=== PATIENT | female | born 1970 | race African-American/Black ===

== ENCOUNTER 2023-05-27 08:11 | Observation (INO) | payer OTHER, SELFPAY ==
[2023-05-27] VITALS (12 sets, daily range): BP systolic 132–160; BP diastolic 73–88; PULSE 50–85; RESP 12–19; TEMP 36.1–36.4; O2SAT 98–100; BMI 33.5
--- NOTE | ~2023-05-27 | XR_ITS ---
EXAMINATION: XR lumbar spine 2-3V DATE: 05/30/2023 13:36 INDICATION: Low back pain TECHNIQUE: Anteroposterior and lateral views of the lumbar spine, and cone-down lateral view of the l umbosacral junction were obtained. COMPARISON: None. FINDINGS: 7 degrees lumbar dextrocurvature. 6 mm anterolisthesis L4 on L5. 3 mm retrolisthesis L5 on S1. Verteb ral body heights are normal. Mild disc height loss at T12-L1 and L4-L5 and moderate disc height loss at L5-S1. 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 Phleboliths in the pel vis. IMPRESSION: 1. Mild lumbar levocurvature with moderate lower lumbar predominant spondylosis. Reviewed, dictated and finalized at location A. L REFINER IMPRESSION: 1. Mild lumbar levocurvature with moderate lower lumbar predominant spondylosis .
--- NOTE | ~2023-05-27 | MR_ITS ---
MRI of the brain Clinical History: Vertigo Technique: Axial and sagittal T1-weighted images were acquired. These were followed by axial T2-weigh david, diffusion weighted, gradient, and FLAIR images. Following intravenous administration of 20 cc Mu ltiHance gadolinium, T1-weighted fat-sat imaging was performed in the axial and coronal planes. Findings: There is no abnormal signal in the brain parenchyma. No acute infarct, intracranial hemorrh age or mass lesion. Ventricles and subarachnoid spaces are unremarkable. Orbits are unremarkable. Paranasal sinuses and m astoid air cells are clear. Major intracranial flow voids are intact. Sagittal midline structures are intact. No abnormal postcontrast enhancement identified. IMPRESSION: Unremarkable exam. Reviewed, dictated and finalized at location M. T OPERATOR IMPRESSION: Unremarkable exam.
--- NOTE | ~2023-05-27 | CT_ITS ---
EXAMINATION: CT brain wo con DATE: 05/27/2023 10:07 INDICATION: Vertigo. TECHNIQUE: Computed tomography (CT) of the head was performed without intravenous contrast. The mA wa s adjusted according to patient size. Iterative reconstruction technique was employed. The dose-lengt h product was 605.33 mGy-cm. COMPARISON: None FINDINGS: There is no intracranial hemorrhage, acute infarction, or abnormal intracranial mass lesion . The ventricles are normal in size. The orbits are normal. The paranasal sinuses are clear. The mast oid air cells are normal. IMPRESSION: 1. Normal brain. Reviewed, dictated and finalized at location A. OCK MAKER IMPRESSION: 1. Normal brain.
--- NOTE | ~2023-05-27 | CT_ITS ---
EXAMINATION: CTA brain carotid DATE: 05/27/2023 11:47 INDICATION: Vertigo. TECHNIQUE: Computed tomographic angiography (CTA) of the head was performed with 100 mL Omnipaque-350 intravenous contrast. CTA of the neck was performed with intravenous contrast. Automated exposure co ntrol and iterative reconstruction technique were employed. The dose-length product was 1049.96 mGy-c m. Maximum intensity projection and volume rendered 3D-reconstructions were created by the Xenapto st on a separate workstation. COMPARISON: Head CT 05/27/2023 FINDINGS: HEAD CTA: There is no intracranial hemorrhage, acute infarction, or abnormal intracranial mass lesion . The ventricles are normal in size. The orbits are normal. The paranasal sinuses are clear. The mast oid air cells are normal. The vertebral arteries are codominant. There is no significant stenosis of basilar artery or the posterior cerebral arteries. There is no significant stenosis of the intracrani al internal carotid arteries or anterior or middle cerebral arteries. Anterior commuting artery is no rmal. The posterior communicating arteries are normal. There is no aneurysm. NECK CTA: There are no pathologically enlarged lymph nodes. There is no significant stenosis of the v ertebral arteries. There is plaque in the proximal internal carotid arteries. There is 0% stenosis of the proximal right internal carotid artery relative to normal distal artery lumen diameter (NASCET c riteria). There is 0% stenosis of the proximal left internal carotid artery relative to normal distal artery lumen diameter. There is severe cervical spondylosis. IMPRESSION: 1. Normal brain. No aneurysm or significant intracranial arterial stenosis. 2. 0% stenosis of the proximal internal carotid arteries relative to normal distal artery lumen diame ters (NASCET criteria). Reviewed, dictated and finalized at location A. GOW DEALER IMPRESSION: 1. Normal brain. No aneurysm or significant intracranial arterial stenosis. 2. 0% stenosis of the proximal internal carotid arteries relative to normal dis jaqui artery lumen diameters (NASCET criteria).
--- NOTE | 2023-05-27 08:20 | ED.DIZZY ---
HPI - Dizziness General Chief Complaint: Dizziness Stated Complaint: n/v Time Seen by Provider: 05/27/23 08:13 History of Present Illness HPI Narrative: 53-year-old female presenting to the emergency department for evaluation dizziness with associated nausea and vomiting. Patient states the symptoms started today. 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 Patient arrived to the emergency department by EMS. Patient denies a recent falls or injuries. Patient denies any coughs colds or fevers and patient denies any associated numbness or weakness. Related Data Home Medications Medication Instructions Recorded Confirmed amlodipine 5 mg tablet 5 mg PO DAILY 05/27/23 05/27/23 metoprolol tartrate 50 mg tablet 50 mg PO DAILY 05/27/23 05/27/23 potassium chloride 10 mEq 10 meq PO DAILY 05/27/23 05/27/23 tablet,extended release triamterene 37.5 1 tablet PO DAILY 05/27/23 05/27/23 mg-hydrochlorothiazide 25 mg tablet valacyclovir 1 gram tablet 1,000 mg PO DAILY 05/27/23 05/27/23 Allergies Allergy/AdvReac Type Severity Reaction Status Date / Time No Known Allergies Allergy Verified 05/27/23 08:18 Review of Systems Review of Systems: All systems reviewed & are unremarkable except as noted in HPI and below PMFSH Past Medical History Medical History (Updated 05/27/23 @ 18:22 by Lai Zhang MD) Hypertension Social History Social History Smoking status: Never smoker Do You Feel Safe in your Home?: Yes Lack of Transportation: No Lack of Food: Never True Current Housing: I Have Housing Concerned About Future Housing: No Difficulty Paying Gas/Electric Bills: No Difficulty Paying for Meds: No Currently Unemployed: No Education: High School Diploma/GED Difficulty w/ Childcare or Family Care: No Spiritual care concerns: No Exam Narrative: APPEARANCE: Persistent nausea HEAD: normocephalic, atraumatic. EYES: PERRLA/EOMI, conjunctivae clear. NOSE: Normal no drainage EARS:TMS clear with good light reflex. THROAT: Pharynx clear, no exudate. NECK: Supple. No adenopathy, no masses. RESPIRATORY: Airway patent, respirations nonlabored. Clear to auscultation bilaterally, no rales, rhonchi, wheezing. CARDIOVASCULAR: Regular rate and rhythm without murmurs rubs or gallops. ABDOMINAL: Soft, nontender, nondistended, normal bowel sounds MUSCULOSKELETAL: Moves all extremities. Strength/ROM intact, No edema, No calf tenderness. NEURO: Alert. Cranial nerves II through XII intact. Grossly intact SKIN: Warm, dry. Normal Color Course Course Emergency Course: 53-year-old female present to the emergency department for evaluation of vertigo. Patient was having nausea and vomiting upon arrival to the emergency department. Patient was treated with Reglan Zofran and meclizine patient has had a resolution as her nausea and vomiting. Patient states she still feels dizzy. Head CT was negative for acute intracranial abnormality. Patient was negative for influenza RSV and COVID. No significant abnormalities on the patient's CMP other than a potassium of 3.0 this is replaced orally. Patient had persistent vertigo and was unable to ambulate at her baseline. CT and CTA showed no acute intracranial abnormality. Neurology consult was placed. Case was discussed the hospitalist and patient was accepted for admission. Patient family were updated the results of the workup plan for admission for MRI to evaluate for possible CVA. All questions concerns were addressed. Vital Signs Vital signs: Vital Signs Temperature 97.0 F L 05/27/23 08:11 Pulse Rate 63 05/27/23 08:11 Respiratory Rate 17 05/27/23 08:11 Blood Pressure 132/73 05/27/23 08:11 Pulse Oximetry 98 05/27/23 08:11 Oxygen Delivery Room Air 05/27/23 08:11 Temperature 97.0 F L 05/27/23 08:11 Pulse Rate 68 05/27/23 15:21 Respiratory Rate 16 05/27/23 15:21
[2023-05-27 08:28] LABS: Basophils Absolute Auto 0.1 K/mm3 (0.0-0.1); Basophils Percent Auto 0.5 % (0.2-1.2); Eosinophils Percent Auto 0.4 % (0-4.4); Hematocrit 41.1 % (37.0-47.0); Hemoglobin 13.1 g/dL (12.0-15.0); Immature Granulocyte Absolute 0.05 K/mm3 (0.00-0.031); Immature Granulocyte Percent A 0.5 % (0-0.5); Lymphocytes Absolute Auto 3.34 K/mm3 (0.9-3.2); Lymphocytes Percent Auto 33.3 % (18.3-44.2); Mean Corpuscular HGB Conc 31.9 g/dl (32-36); Mean Corpuscular Hemoglobin 25.9 pg (26-34); Mean Corpuscular Volume 81.4 fl (80-100); Mean Platelet Volume 10.6 fl (7.4-10.4); Monocytes Absolute Auto 0.5 K/mm3 (0.1-0.6); Monocytes Percent Auto 5.4 % (2.6-8.5); Neutrophils Percent Auto 59.9 % (45.5-73.1); Platelet Count Result 272 k/mm3 (150-375); Red Blood Count 5.05 M/mm3 (4.2-5.4); Red Cell Distribution Width 13.5 % (11.5-14.5)
[2023-05-27] MEDS: diazePAM INJ (*CRX) 10 MG/2 ML SYRINGE 2 MG IV PUSH (08:30)
[2023-05-27] MEDS: SODIUM CHLORIDE 0.9% IV 1,000 ML 999 ML IV CONT (08:30)
[2023-05-27] MEDS: METOCLOPRAMIDE HCL INJ 10 MG/2 ML VIAL IV PUSH ×2 (08:30→12:15)
[2023-05-27] MEDS: MECLIZINE HCL 25 MG TABLET PO (08:30)
[2023-05-27 08:42] LABS: Alanine Aminotransferase 34 U/L (6-35); Albumin Level 4.5 g/dL (3.5-5.1); Alkaline Phosphatase 101 U/L (38-126); Anion Gap 9 mmol/L (8-16); Aspartate Amino Transferase 33 U/L (14-36); Bilirubin,Total 0.5 mg/dL (0.2-1.3); Blood Urea Nitrogen 18 mg/dL (7-17); Calcium 9.4 mg/dL (8.4-10.2); Carbon Dioxide 25 mmol/L (22-30); Chloride 104 mmol/L (98-107); Estimated CRCL calculation 82 ml/min; Estimated Glomerular Filt Rate > 60; Glucose 160 mg/dL (65-110); Sodium 138 mmol/L (137-145)
[2023-05-27] MEDS: POTASSIUM CHLORIDE 20 MEQ ER TABLET 40 MEQ PO (09:40)
[2023-05-27 10:05] LABS: Magnesium 1.9 mg/dL (1.6-2.3)
[2023-05-27 10:33] LABS: Influenza A QL RT-PCR Negative (Negative); Influenza B QL RT-PCR Negative (Negative); RSV RNA, RT-PCR Negative (Negative); SARS-CoV-2 RNA PCR Negative (Negative)
[2023-05-27 13:20] LABS: Toxigenic C. Diff NEGATIVE (NEGATIVE)
--- NOTE | 2023-05-27 14:49 | PM.IMHP ---
H&P: HPI History of Present Illness Date/Time: 05/27/23 14:30 Chief Complaint: Dizziness, nausea, and vomiting. Narrative: This is a very pleasant 53-year-old female with hypertension who presented to the emergency department via EMS for evaluation of dizziness, nausea, and vomiting. The patient provides the following history. She woke up this morning in her usual state of health and went to work at 05:00. 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 She reports feeling as though the room is spinning and she cannot even change her gaze or move her head without worsening symptoms. She also reports several episodes of emesis and a few loose stools. She denies visual changes, facial droop, difficulty speaking and swallowing, focal weakness, and paresthesias. She also denies fever, chills, sweats, tinnitus, cold and flu symptoms, chest pain, pleuritic pain, palpitations, and sensations of racing heart. She has not had any recent falls or head trauma. She has never had similar symptoms. In the ED: She was afebrile on arrival with blood pressures in the 140s over 80s. Labs were significant for potassium of 3.0, BUN 18, creatinine 0.80, glucose 160. She tested negative for influenza, RSV, and COVID. Brain CT showed a normal brain. CTA of the head and neck showed no aneurysm or significant intracranial arterial stenosis and 0% stenosis of the proximal bilateral internal carotid arteries. Metoclopramide, meclizine, and diazepam have not provided her with much relief. She is being admitted in this setting for further treatment and evaluation. Review of Systems Review of Systems: Twelve systems were reviewed and are negative except for as per HPI. [facility] Past Medical History Medical History Hypertension Surgical History Surgical History (Updated 05/27/23 @ 21:11 by Kanwal Burk PA-C) History of lumbar surgery Family History Family History (Updated 05/27/23 @ 21:11 by Kanwal Burk PA-C) Other Family history non-contributory Social History Social History (Updated 05/27/23 @ 21:12 by Kanwal Burk PA-C) Social History: Code status: Full code. Smoking status: Never smoker Do You Feel Safe in your Home?: Yes Lack of Transportation: No Lack of Food: Never True Current Housing: I Have Housing Concerned About Future Housing: No Difficulty Paying Gas/Electric Bills: No Difficulty Paying for Meds: No Currently Unemployed: No Education: High School Diploma/GED Difficulty w/ Childcare or Family Care: No Spiritual care concerns: No Meds Home Medications and Allergies Home Medications Medication Instructions Recorded Confirmed Type amlodipine 5 mg tablet 5 mg PO DAILY 05/27/23 05/27/23 History metoprolol tartrate 50 mg tablet 50 mg PO DAILY 05/27/23 05/27/23 History potassium chloride 10 mEq 10 meq PO DAILY 05/27/23 05/27/23 History tablet,extended release triamterene 37.5 1 tablet PO DAILY 05/27/23 05/27/23 History mg-hydrochlorothiazide 25 mg tablet valacyclovir 1 gram tablet 1,000 mg PO DAILY 05/27/23 05/27/23 History Allergies Allergy/AdvReac Type Severity Reaction Status Date / Time No Known Allergies Allergy Verified 05/27/23 08:18 Vital Signs Vital Signs - 24 hr 05/27/23 08:11 05/27/23 09:02 05/27/23 10:53 Temperature 97.0 F L Pulse Rate 63 68 69 Respiratory Rate 17 12 18 Blood Pressure 132/73 142/85 H 146/85 H Pulse Oximetry 98 100 100 Oxygen Delivery Room Air 05/27/23 09:52 05/27/23 10:09 05/27/23 11:01 Temperature Pulse Rate 71 65 68 Respiratory Rate 17 15 14 Blood Pressure 143/88 H 146/85 H 147/88 H Pulse Oximetry 100 98 100 Oxygen Delivery 05/27/23 13:01 05/27/23 14:30 Temperature Pulse Rate 78 71 Respiratory Rate 19 15 Blood Pressure 145/86 H 146/
--- NOTE | 2023-05-27 15:21 | PCPTNOTE ---
attempted to see at 1515, but not on the floor yet according to Dinorah ARCE.
--- NOTE | 2023-05-27 15:45 | ADMGEN ---
This patient, Silvia Taylor, was admitted to Medical Room 251-01. Patient/family oriented to hospital policies and general routines including ID bracelet, bed and alarms, visiting hours, pain management, procedures, bathroom and other care routines, personal items, smoking policy, room service/diet, and visiting hours. Information on how to activate the Rapid Response Team has been discussed. Patient/Family are encouraged to report perceived risks to care and to ask questions if they do not understand what they are told or what they should do.
[2023-05-27] MEDS: ONDANSETRON INJ 4 MG/2 ML VIAL IV PUSH ×2 (15:54→21:30)
[2023-05-27] MEDS: MECLIZINE HCL 12.5 MG TABLET PO (15:54)
[2023-05-27] MEDS: SODIUM CHLORIDE 0.9% IV 1,000 ML 100 ML IV CONT (15:55)
[2023-05-27] MEDS: diazePAM INJ (*CRX) 10 MG/2 ML SYRINGE 2.5 MG IV PUSH (21:30)
[2023-05-27] MEDS: ACETAMINOPHEN 325 MG TABLET 650 MG PO (21:30)
[2023-05-27] MEDS: METOPROLOL TARTRATE 50 MG TAB PO (22:37)
[2023-05-28] VITALS (11 sets, daily range): BP systolic 135–159; BP diastolic 66–82; PULSE 62–76; RESP 15–18; TEMP 36.1–36.4; O2SAT 97–98
[2023-05-28 06:07] LABS: Anion Gap 7 mmol/L (8-16); Blood Urea Nitrogen 14 mg/dL (7-17); Calcium 9.1 mg/dL (8.4-10.2); Carbon Dioxide 28 mmol/L (22-30); Chloride 104 mmol/L (98-107); Estimated CRCL calculation 87 ml/min; Estimated Glomerular Filt Rate > 60; Glucose 107 mg/dL (65-110); Magnesium 2.1 mg/dL (1.6-2.3); Potassium 2.9 mmol/L (3.4-5.0); Sodium 139 mmol/L (137-145)
[2023-05-28] MEDS: amLODIPine BESYLATE 5 MG TABLET PO (09:04)
[2023-05-28] MEDS: valACYclovir HCL 500 MG TABLET 1000 MG PO (09:04)
[2023-05-28] MEDS: POTASSIUM CHLORIDE 20 MEQ ER TABLET 40 MEQ PO (09:05)
[2023-05-28] MEDS: METOPROLOL TARTRATE 50 MG TAB PO ×2 (09:05→19:48)
[2023-05-28] MEDS: MECLIZINE HCL 12.5 MG TABLET PO (09:13)
[2023-05-28 09:44] LABS: Basophils Percent Auto 0.4 % (0.2-1.2); Eosinophils Percent Auto 0.1 % (0-4.4); Hematocrit 39.3 % (37.0-47.0); Hemoglobin 12.8 g/dL (12.0-15.0); Immature Granulocyte Absolute 0.03 K/mm3 (0.00-0.031); Immature Granulocyte Percent A 0.3 % (0-0.5); Lymphocytes Absolute Auto 3.28 K/mm3 (0.9-3.2); Lymphocytes Percent Auto 29.1 % (18.3-44.2); Mean Corpuscular HGB Conc 32.6 g/dl (32-36); Mean Corpuscular Hemoglobin 26.7 pg (26-34); Mean Corpuscular Volume 81.9 fl (80-100); Mean Platelet Volume 11.2 fl (7.4-10.4); Monocytes Absolute Auto 0.8 K/mm3 (0.1-0.6); Monocytes Percent Auto 7.3 % (2.6-8.5); Neutrophils Absolute Auto 7.1 K/mm3 (1.3-6.7); Neutrophils Percent Auto 62.8 % (45.5-73.1); Platelet Count Result 289 k/mm3 (150-375); Red Cell Distribution Width 13.7 % (11.5-14.5); White Blood Count 11.3 K/mm3 (4.5-10.0)
[2023-05-28] MEDS: LACTATED RINGERS 1,000 ML 100 ML IV CONT ×2 (10:12→21:35)
[2023-05-28 10:15] LABS: Appearance Urine Cloudy (Clear); Bacteria Urine 4+ /hpf; Bilirubin Urine Negative (Negative); Color Urine Yellow (Yellow); Glucose Urine UA Negative (Negative); Ketones Urine Negative (Negative); Leukocyte Esterase Ur 1+ LEU/UL (Negative); Nitrate Urine Negative (Negative); Non Pathogenic Casts 0-2; Protein Urine Negative (Negative); RBC Urine 0-2 /hpf (0-2); Specific Grav Ur 1.016 (1.001-1.035); Squamous Epithelial Cell Urine None seen /hpf (Few); pH Urine 6.5 (5.0-9.0)
[2023-05-28 10:21] LABS: Add Urine Microscopic? YES
--- NOTE | 2023-05-28 10:45 | WPDNEURCNPN ---
Assessment and Plan Assessment and plan (1) Vertigo: Code(s): R42 - Dizziness and giddiness Status: Acute Plan Ms. Taylor is a 53 year old female with a history of HTN presenting due to acute onset vertigo, that is worse with positional changes of the head. No other focal symptoms described or noted on exam. Seems to be likely peripheral etiology of vertigo. MRI brain to be obtained to rule out central cause. If imaging is unrevealing for cause of symptoms, she will need vestibular therapy. Consult date: 05/28/23 Reason for consult: Dizziness HPI: Silvia Taylor is a 53 year old female with a history of hypertension presenting for evaluation of dizziness. On the days of presentation, patient woke up feeling fine and went to work. While at work she developed severe vertigo with diaphroesis,feeling hot, and nausea. She describes the sensation as room spinning around her, which was worse with looking to the side or moving her head. She denied any other concerning focal symptoms. She presented to [place] ED where her blood pressure was initially in the 140s systolic. Lab work was unrevealing. CT head showed no acute process. CTA brain/carotid did not show any evidence of intracranial or extracranial stenosis. She was give metoclopramide, meclizine, and diazepam in the ED which did not provide significant relief. UA done this morning shows some LE and WBC. She has been started on Rocephin. MRI brain has been ordered but has not been completed yet. Review of Systems Review of Systems: All systems reviewed & are unremarkable except as noted in HPI and below PMFSH Past Medical History Medical History Hypertension Surgical History Surgical History History of lumbar surgery Family History Family History Other Family history non-contributory Social History Social History Social History: Code status: Full code. Smoking status: Never smoker Do You Feel Safe in your Home?: Yes Lack of Transportation: No Lack of Food: Never True Current Housing: I Have Housing Concerned About Future Housing: No Difficulty Paying Gas/Electric Bills: No Difficulty Paying for Meds: No Currently Unemployed: No Education: High School Diploma/GED Difficulty w/ Childcare or Family Care: No Spiritual care concerns: No Meds Home Medications and Allergies Home Medications Medication Instructions Recorded Confirmed Type amlodipine 5 mg tablet 5 mg PO DAILY 05/27/23 05/27/23 History metoprolol tartrate 50 mg tablet 50 mg PO DAILY 05/27/23 05/27/23 History potassium chloride 10 mEq 10 meq PO DAILY 05/27/23 05/27/23 History tablet,extended release triamterene 37.5 1 tablet PO DAILY 05/27/23 05/27/23 History mg-hydrochlorothiazide 25 mg tablet valacyclovir 1 gram tablet 1,000 mg PO DAILY 05/27/23 05/27/23 History Allergies Allergy/AdvReac Type Severity Reaction Status Date / Time No Known Allergies Allergy Verified 05/27/23 08:18 Vital Signs Vital Signs - 24 hr 05/27/23 10:53 05/27/23 11:01 05/27/23 13:01 Temperature Pulse Rate 69 68 78 Respiratory Rate 18 14 19 Blood Pressure 146/85 H 147/88 H 145/86 H Pulse Oximetry 100 100 98 Oxygen Delivery 05/27/23 14:30 05/27/23 15:21 05/27/23 16:14 Temperature Pulse Rate 71 68 Respiratory Rate 15 16 Blood Pressure 146/85 H 155/86 H Pulse Oximetry 100 100 Oxygen Delivery Room Air 05/27/23 19:55 05/27/23 22:37 05/27/23 21:15 Temperature 36.4 C L Pulse Rate 85 50 L Respiratory Rate 18 Blood Pressure 160/79 H Pulse Oximetry 98 Oxygen Delivery Room Air 05/27/23 20:00 05/28/23 00:00 05/28/23 04:27 Temperature 36.1 C L Pulse Rate 79 76 72 Respiratory Rate 18 Blood Pressure 135/66 Pulse Oxi
[2023-05-28] MEDS: ACETAMINOPHEN 325 MG TABLET 650 MG PO ×2 (11:34→19:47)
--- NOTE | 2023-05-28 13:19 | PM.IMPN ---
Progress Note: A&P Assessment and Plan (1) Vertigo: Code(s): R42 - Dizziness and giddiness Status: Acute Assessment and Plan: CTA of the head and neck was without significant findings. Meclizine, metoclopramide, and diazepam given, has not provided her with significant relief. likely benign paroxysmal positional vertigo neurology consulted PT consult for vestibular therapy supportive care MRI brain ordered IVF in LR as she is having poor PO intake (2) Hypokalemia: Code(s): E87.6 - Hypokalemia Status: Acute Assessment and Plan: Combination thiazide diuretic is on hold for now given hypokalemia. Potassium will be replaced and monitored (3) Hypertension: Code(s): I10 - Essential (primary) hypertension Status: Chronic Assessment and Plan: Continue amlodipine 5 mg and metoprolol 50 mg daily. (4) Hyperglycemia: Code(s): R73.9 - Hyperglycemia, unspecified Status: Acute Assessment and Plan: fasting this am 107 (5) UTI (urinary tract infection): Code(s): N39.0 - Urinary tract infection, site not specified Status: Acute Assessment and Plan: UA positive for leuks, WBC, 4+ bacteri Started on Rocephin UA culture pending Subjective Date/time seen: 05/28/23 13:19 Interval history: Patient in bed this morning, no acute distress but obviously uncomfortable. She keeps her eyes closed throughout most of our conversation, at bedside. She has not noted any improvement. Has little to no appetite, but denies abdominal pain. She has not had any vomiting. Neurology consulted, awaiting MRI. Concurs if unrevealing, likely BPV and patient will need vestibular therapy. PT evaluating. Will continue to replete and monitor potassium. UA today indicates UTI, UA culture pending but started on Rocephin. Review of Systems Review of Systems: Twelve systems were reviewed and are negative except for as per HPI. Exam Const: General: no acute distress and uncomfortable HENMT: Mouth: Yes dry mucous membranes Eyes: EOM: EOMs intact bilaterally Neck: Neck: supple Resp: Effort & Inspection: normal respiratory effort Auscultation: clear to auscultation bilaterally Cardio: Rate: regular rate Rhythm: regular rhythm GI: GI Palp: Yes Soft to palpation Auscultation: normal bowel sounds Skin: General skin exam: normal color and no rashes or lesions noted Neuro: Speech: normal speech Sensory Exam: normal sensation Other: no focal defects. Extrem: General: normal to inspection Psych: Affect: normal affect and Sad affect present Objective Data Vital Signs Vital Signs: Vital Signs - 24 hr 05/27/23 14:30 05/27/23 15:21 05/27/23 16:14 Temperature Pulse Rate 71 68 Respiratory Rate 15 16 Blood Pressure 146/85 H 155/86 H Pulse Oximetry 100 100 Oxygen Delivery Room Air 05/27/23 19:55 05/27/23 22:37 05/27/23 21:15 Temperature 97.5 F L Pulse Rate 85 50 L Respiratory Rate 18 Blood Pressure 160/79 H Pulse Oximetry 98 Oxygen Delivery Room Air 05/27/23 20:00 05/28/23 00:00 05/28/23 04:27 Temperature 97.0 F L Pulse Rate 79 76 72 Respiratory Rate 18 Blood Pressure 135/66 Pulse Oximetry 98 Oxygen Delivery 05/28/23 04:00 05/28/23 09:05 05/28/23 09:05 Temperature Pulse Rate 71 72 Respiratory Rate 18 Blood Pressure Pulse Oximetry 98 Oxygen Delivery Room Air 05/28/23 08:01 05/28/23 12:04 Temperature Pulse Rate 62 68 Respiratory Rate Blood Pressure Pulse Oximetry Oxygen Delivery Intake/Output Intake/Output: Intake & Output 05/25/23 05/26/23 05/27/23 05/28/23 23:59 23:59 23:59 23:59 Intake Total 1000 750 Balance 1000 750 Meds/Results Medications: Active Medications Generic Name Dose Route Start Last Admin Trade Name Qing PRN Reason Stop Dose Admin Acetaminophen 650 mg 05/27/23 15:04 05/28/23 11
[2023-05-29] VITALS (9 sets, daily range): BP systolic 151–153; BP diastolic 68–81; PULSE 57–77; RESP 12–16; TEMP 36.4–37.3; O2SAT 98–99
[2023-05-29] MEDS: ACETAMINOPHEN 325 MG TABLET 650 MG PO ×3 (02:47→23:53)
[2023-05-29 06:02] LABS: Basophils Percent Auto 0.5 % (0.2-1.2); Eosinophils Percent Auto 0.2 % (0-4.4); Hematocrit 39.8 % (37.0-47.0); Hemoglobin 12.8 g/dL (12.0-15.0); Immature Granulocyte Absolute 0.02 K/mm3 (0.00-0.031); Immature Granulocyte Percent A 0.2 % (0-0.5); Lymphocytes Absolute Auto 2.41 K/mm3 (0.9-3.2); Lymphocytes Percent Auto 29.1 % (18.3-44.2); Mean Corpuscular HGB Conc 32.2 g/dl (32-36); Mean Corpuscular Hemoglobin 26.4 pg (26-34); Mean Corpuscular Volume 82.1 fl (80-100); Mean Platelet Volume 10.5 fl (7.4-10.4); Monocytes Absolute Auto 0.5 K/mm3 (0.1-0.6); Monocytes Percent Auto 6.2 % (2.6-8.5); Neutrophils Absolute Auto 5.3 K/mm3 (1.3-6.7); Neutrophils Percent Auto 63.8 % (45.5-73.1); Platelet Count Result 262 k/mm3 (150-375); Red Blood Count 4.85 M/mm3 (4.2-5.4); Red Cell Distribution Width 13.4 % (11.5-14.5); White Blood Count 8.3 K/mm3 (4.5-10.0)
[2023-05-29 06:15] LABS: Anion Gap 4 mmol/L (8-16); Blood Urea Nitrogen 11 mg/dL (7-17); Calcium 8.7 mg/dL (8.4-10.2); Carbon Dioxide 29 mmol/L (22-30); Chloride 106 mmol/L (98-107); Estimated CRCL calculation 99 ml/min; Estimated Glomerular Filt Rate > 60; Glucose 98 mg/dL (65-110); Potassium 3.2 mmol/L (3.4-5.0); Sodium 139 mmol/L (137-145)
[2023-05-29] MEDS: valACYclovir HCL 500 MG TABLET 1000 MG PO (09:46)
[2023-05-29] MEDS: amLODIPine BESYLATE 5 MG TABLET PO (09:46)
[2023-05-29] MEDS: METOPROLOL TARTRATE 50 MG TAB PO ×2 (09:46→20:51)
[2023-05-29] MEDS: POTASSIUM CHLORIDE INJ 40 MEQ in SODIUM CHLORIDE 0.9% IV 500 ML 130 MEQ IVPB (11:31)
--- NOTE | 2023-05-29 14:11 | PM.IMPN ---
Progress Note: A&P Assessment and Plan (1) Vertigo: Code(s): R42 - Dizziness and giddiness Status: Acute Assessment and Plan: CTA of the head and neck was without significant findings. Meclizine, metoclopramide, and diazepam available likely benign paroxysmal positional vertigo neurology consulted - agree with BPPV, rec vestibular therapy PT evaluating for vestibular therapy MRI brain unremarkable d/c IVF once PO intake increases (2) Hypokalemia: Code(s): E87.6 - Hypokalemia Status: Acute Assessment and Plan: Combination thiazide diuretic is on hold for now given hypokalemia. Potassium will be replaced and monitored 3.2 this am (3) Hypertension: Code(s): I10 - Essential (primary) hypertension Status: Chronic Assessment and Plan: Continue amlodipine 5 mg and metoprolol 50 mg daily. (4) Hyperglycemia: Code(s): R73.9 - Hyperglycemia, unspecified Status: Acute Assessment and Plan: fasting this am 107 (5) UTI (urinary tract infection): Code(s): N39.0 - Urinary tract infection, site not specified Status: Acute Assessment and Plan: UA positive for leuks, WBC, 4+ bacteria Continue Rocephin UA culture pending Subjective Date/time seen: 05/29/23 14:11 Interval history: Patient in bed this morning, no acute distress and feeling a little better today. She is able to keep her eyes open and is only reporting dizziness with head movements. Her appetite has improved some, she has been drinking more of the clear liquids. She has not had any vomiting. Neurology consulted, MRI normal. Concurs if unrevealing, likely BPV and patient will need vestibular therapy. PT evaluating. Will continue to replete and monitor potassium. UA culture pending, continue Rocephin. Review of Systems Review of Systems: Twelve systems were reviewed and are negative except for as per HPI. Exam Const: General: no acute distress Eyes: EOM: EOMs intact bilaterally Neck: Neck: supple Resp: Effort & Inspection: normal respiratory effort Auscultation: clear to auscultation bilaterally Cardio: Rate: regular rate Rhythm: regular rhythm GI: Auscultation: normal bowel sounds Skin: General skin exam: normal color and no rashes or lesions noted Neuro: Speech: normal speech Sensory Exam: normal sensation Other: no focal defects. Extrem: General: normal to inspection Other: No cyanosis, clubbing, or edema. Peripheral pulses intact. Psych: Affect: normal affect Other: Pleasant and cooperative. Appropriate mood and affect. Objective Data Vital Signs Vital Signs: Vital Signs - 24 hr 05/28/23 16:01 05/28/23 19:48 05/28/23 19:55 Temperature Pulse Rate 63 62 Respiratory Rate Blood Pressure Pulse Oximetry Oxygen Delivery Room Air 05/28/23 20:43 05/28/23 20:00 05/29/23 00:00 Temperature 97.6 F Pulse Rate 62 67 61 Respiratory Rate 15 Blood Pressure 150/82 H Pulse Oximetry 97 Oxygen Delivery 05/29/23 03:21 05/29/23 04:00 05/29/23 09:46 Temperature 97.6 F Pulse Rate 58 L 65 66 Respiratory Rate 15 Blood Pressure 153/77 H Pulse Oximetry 98 Oxygen Delivery 05/29/23 08:00 Temperature Pulse Rate Respiratory Rate Blood Pressure Pulse Oximetry Oxygen Delivery Room Air Intake/Output Intake/Output: Intake & Output 05/26/23 05/27/23 05/28/23 05/29/23 23:59 23:59 23:59 23:59 Intake Total 1000 3040 950 Output Total 1800 500 Balance 1000 1240 450 Meds/Results Medications: Active Medications Generic Name Dose Route Start Last Admin Trade Name Freq PRN Reason Stop Dose Admin Acetaminophen 650 mg 05/27/23 15:04 05/29/23 02:47 Acetaminophen 325 Mg Tablet PO 650 mg Q6H PRN Administration Mild Pain (1-3) or Fever Amlodipine Besylate 5 mg 05/28/23 09:00 05/29/23 09:46 Amlodipine Besylate 5 Mg Tablet PO
[2023-05-29] MEDS: ONDANSETRON INJ 4 MG/2 ML VIAL IV PUSH (16:07)
[2023-05-30] VITALS (11 sets, daily range): BP systolic 131–145; BP diastolic 67–80; PULSE 55–70; RESP 16; TEMP 36.4–37.1; O2SAT 98
[2023-05-30] MEDS: HYDROmorphone HCL INJ (*CRX) 1 MG/ML SYR 0.5 MG IV PUSH (01:27)
[2023-05-30] MEDS: LACTATED RINGERS 1,000 ML 100 ML IV CONT (04:40)
[2023-05-30 07:25] LABS: Hematocrit 39.5 % (37.0-47.0); Hemoglobin 12.7 g/dL (12.0-15.0); Mean Corpuscular HGB Conc 32.2 g/dl (32-36); Mean Corpuscular Hemoglobin 26.3 pg (26-34); Mean Platelet Volume 10.3 fl (7.4-10.4); Platelet Count Result 274 k/mm3 (150-375); Red Blood Count 4.82 M/mm3 (4.2-5.4); Red Cell Distribution Width 13.3 % (11.5-14.5); White Blood Count 7.1 K/mm3 (4.5-10.0)
[2023-05-30 07:36] LABS: Anion Gap 7 mmol/L (8-16); Blood Urea Nitrogen 11 mg/dL (7-17); Calcium 8.7 mg/dL (8.4-10.2); Carbon Dioxide 26 mmol/L (22-30); Chloride 106 mmol/L (98-107); Estimated CRCL calculation 87 ml/min; Estimated Glomerular Filt Rate > 60; Glucose 96 mg/dL (65-110); Potassium 3.2 mmol/L (3.4-5.0); Sodium 139 mmol/L (137-145)
[2023-05-30] MEDS: amLODIPine BESYLATE 5 MG TABLET PO (08:01)
[2023-05-30] MEDS: valACYclovir HCL 500 MG TABLET 1000 MG PO (08:02)
[2023-05-30] MEDS: MECLIZINE HCL 12.5 MG TABLET PO (08:02)
[2023-05-30] MEDS: METOPROLOL TARTRATE 50 MG TAB PO ×2 (08:02→20:25)
[2023-05-30] MEDS: POTASSIUM CHLORIDE 20 MEQ PACKET (FOR LIQUID) 40 MEQ PO (09:46)
[2023-05-30] MEDS: IBUPROFEN 600 MG TABLET PO (10:14)
[2023-05-30] MEDS: polyethylene glycoL 3350 17 GM POWD.PACK PO (12:02)
--- NOTE | 2023-05-30 13:39 | PM.IMPN ---
Progress Note: A&P Assessment and Plan (1) Vertigo: Code(s): R42 - Dizziness and giddiness Status: Acute Assessment and Plan: CTA of the head and neck was without significant findings. Meclizine, metoclopramide, and diazepam available likely benign paroxysmal positional vertigo neurology consulted - agree with BPPV, rec vestibular therapy PT evaluating for vestibular therapy MRI brain unremarkable d/c IVF once PO intake increases (2) Hypokalemia: Code(s): E87.6 - Hypokalemia Status: Acute Assessment and Plan: Combination thiazide diuretic is on hold for now given hypokalemia. Potassium will be replaced and monitored 3.2 this am (3) Hypertension: Code(s): I10 - Essential (primary) hypertension Status: Chronic Assessment and Plan: Continue amlodipine 5 mg and metoprolol 50 mg daily. (4) Hyperglycemia: Code(s): R73.9 - Hyperglycemia, unspecified Status: Acute Assessment and Plan: fasting this am 107 (5) UTI (urinary tract infection): Code(s): N39.0 - Urinary tract infection, site not specified Status: Acute Assessment and Plan: UA positive for leuks, WBC, 4+ bacteria Continue Rocephin UA culture pending Subjective Date/time seen: 05/30/23 13:39 Interval history: Patient in bed this morning, no acute distress and feeling a little better today. She is able to keep her eyes open and is only reporting dizziness with head movements. Her appetite has improved, and wanted a regular diet. She has not had any vomiting. Neurology consulted, MRI normal. Concurs if unrevealing, likely BPV and patient will need vestibular therapy. PT evaluating. Will continue to replete and monitor potassium. UA culture pending, continue Rocephin. Patient has reported back pain with known lumbar surgery over 5 years ago. Will order PRN motrin prior to PT, would likely improve with mopvement out of bed. Patient reported to nurse one sided foot numbness with initial getting out of bed, but resolved. Will order lumbar XR. Review of Systems Review of Systems: Twelve systems were reviewed and are negative except for as per HPI. Exam Const: General: no acute distress Eyes: EOM: EOMs intact bilaterally Neck: Neck: supple Resp: Effort & Inspection: normal respiratory effort Auscultation: clear to auscultation bilaterally Cardio: Rate: regular rate Rhythm: regular rhythm GI: Auscultation: normal bowel sounds Skin: General skin exam: normal color and no rashes or lesions noted Neuro: Speech: normal speech Sensory Exam: normal sensation Other: no focal defects. Extrem: General: normal to inspection Other: No cyanosis, clubbing, or edema. Peripheral pulses intact. Psych: Affect: normal affect Other: Pleasant and cooperative. Appropriate mood and affect. Objective Data Vital Signs Vital Signs: Vital Signs - 24 hr 05/29/23 14:00 05/29/23 15:22 05/29/23 19:34 Temperature 99.2 F 98.0 F Pulse Rate 57 L 60 Respiratory Rate 12 16 Blood Pressure 151/68 H 151/81 H Pulse Oximetry 99 99 Oxygen Delivery Room Air 05/29/23 20:51 05/29/23 20:00 05/29/23 20:50 Temperature Pulse Rate 77 63 Respiratory Rate Blood Pressure Pulse Oximetry Oxygen Delivery Room Air 05/30/23 00:00 05/30/23 01:07 05/30/23 04:45 Temperature 97.6 F Pulse Rate 55 L 55 L 61 Respiratory Rate 16 Blood Pressure 145/77 H 133/69 Pulse Oximetry 98 Oxygen Delivery 05/30/23 04:00 05/30/23 08:02 05/30/23 08:00 Temperature Pulse Rate 56 L 60 Respiratory Rate Blood Pressure Pulse Oximetry 98 Oxygen Delivery Room Air 05/30/23 08:00 05/30/23 12:00 Temperature Pulse Rate 59 L 61 Respiratory Rate Blood Pressure Pulse Oximetry Oxygen Delivery Intake/Output Intake/Output: Intake & Output 05/27/23 05/28/23 05/29/23 05/30/23 23:59 23:59 23
[2023-05-31] VITALS (8 sets, daily range): BP systolic 130–136; BP diastolic 74–79; PULSE 57–68; RESP 14–15; TEMP 37–37.1; O2SAT 100
[2023-05-31 06:42] LABS: Mean Corpuscular HGB Conc 32.5 g/dl (32-36); Mean Corpuscular Hemoglobin 26.7 pg (26-34); Mean Corpuscular Volume 82.1 fl (80-100); Mean Platelet Volume 10.5 fl (7.4-10.4); Platelet Count Result 270 k/mm3 (150-375); Red Blood Count 4.87 M/mm3 (4.2-5.4); Red Cell Distribution Width 13.1 % (11.5-14.5); White Blood Count 7.3 K/mm3 (4.5-10.0)
[2023-05-31 06:58] LABS: Anion Gap 8 mmol/L (8-16); Blood Urea Nitrogen 14 mg/dL (7-17); Calcium 8.9 mg/dL (8.4-10.2); Carbon Dioxide 26 mmol/L (22-30); Chloride 106 mmol/L (98-107); Estimated CRCL calculation 87 ml/min; Estimated Glomerular Filt Rate > 60; Glucose 99 mg/dL (65-110); Potassium 3.5 mmol/L (3.4-5.0); Sodium 140 mmol/L (137-145)
[2023-05-31] MEDS: amLODIPine BESYLATE 5 MG TABLET PO (08:22)
[2023-05-31] MEDS: MECLIZINE HCL 12.5 MG TABLET PO ×2 (08:23→14:17)
[2023-05-31] MEDS: METOPROLOL TARTRATE 50 MG TAB PO (08:23)
[2023-05-31] MEDS: IBUPROFEN 600 MG TABLET PO (08:23)
[2023-05-31] MEDS: polyethylene glycoL 3350 17 GM POWD.PACK PO (08:24)
[2023-05-31] MEDS: valACYclovir HCL 500 MG TABLET 1000 MG PO (08:24)
--- NOTE | 2023-05-31 14:50 | PM.DS ---
DS: Admitting Diagnosis Discharge Date 05/31/23 Admitting Diagnosis Vertigo hypokalemia hypertension hyperglycemia DS: Discharge Diagnosis Discharge Diagnosis (1) Vertigo: Code(s): R42 - Dizziness and giddiness Status: Acute (2) Hypokalemia: Code(s): E87.6 - Hypokalemia Status: Acute (3) Hypertension: Code(s): I10 - Essential (primary) hypertension Status: Chronic (4) Hyperglycemia: Code(s): R73.9 - Hyperglycemia, unspecified Status: Acute (5) UTI (urinary tract infection): Code(s): N39.0 - Urinary tract infection, site not specified Status: Acute DS: Summary Hospital Course Reason for hospitalization: Vertigo hypokalemia hypertension hyperglycemia Hospital Course: This is a 53 old female presented to the hospital on for evaluation of dizziness, nausea, and vomiting. Workup in the hospital included head CT which normal brain no acute issues, head and neck CTA which shown a normal brain no aneurysm, no stenosis. Brain MRI was unremarkable. Lumbar spine showed mild lumbar levocurvature with moderate lower lumbar predominance spondylosis. UA showing 1+ leukocyte, 11-20 urine wbc's, 4+ bacteria. Urine culture shows E coli on final report. On examination today patient is alert and oriented x3, lying in the bed. Patient denies any fever, chills, nausea, vomiting, diarrhea abdominal shortness of breath, or chest pain. She does report that she has lower back pain that wraps around and goes down her leg, likely sciatica. I discussed [id number] medications that she can use for pain relief and she will need to follow up with her primary care physician an outpatient basis for physical therapy and further treatment options. Labs today were unremarkable. Patient is stable for discharge. She will need to go to physical therapy for treatment of her vertigo. She will need to finish her cefdinir antibiotic and follow-up with her primary care physician in 1 week. Final diagnosis: Urinary tract infection, vertigo, hypokalemia, low back pain Status at Discharge Cognitive/behavioral status at discharge: alert and oriented x3 Functional status at discharge: independent ambulation Overall status at discharge: patient is progressing back to baseline Time Spent with Patient Time attestation: Total time spent providing and/or coordinating discharge services: Time spent: Greater than 30 minutes Exam Narrative: General: In no acute distress, well nourished Head: atraumatic, no encephalopathy Eyes: EOMI, PERRLA, sclera clear ENT: moist mucous membranes, nasal passages clear Neck: supple, no JVD, no adenopathy, trachea midline Cardiac: Normal S1 and S2. No murmur, gallops or friction rubs, peripheral pulses intact. Respiratory: Lungs clear to auscultation, no adventitious lung sounds Gastrointestinal: soft, non-distended, non-tender, normoactive bowel sounds. : voiding without difficulty. Extremities: moves all extremities well, no edema, good ROM, strength 5/5, reports lower back pain wraps around and goes down her leg Skin: clean, dry, intact. No wounds or lesions. Neuro: Alert and oriented x4, cranial nerves intact, no neuro deficits. She denies any lightheadedness or dizziness today Psych: normal mood, normal affect, interactive DS: Data Data Completed and Pending Completed studies during hospitalization: Lumbar spine x-ray Brain MRI Head and neck CTA Head CT Pending studies at discharge: None Labs on day of discharge: Labs from last 24 hours 05/31/23 05:56 WBC 7.3 RBC 4.87 Hgb 13.0 Hct 40.0 MCV 82.1 MCH 26.7 MCHC 32.5 RDW 13.1 Plt Count 270 MPV 10.5 H Sodium 140 Potassium 3.5 Chloride 106 Carbon Dioxide 26 Anion Gap 8 BUN 14 Creatinine 0.80 Estim Creat Clear Calc 87 Estimated GFR > 60 Glucose 99 Calcium 8.9 Procedures/Treatments: None Imaging Radiologist's impression: EXAMINATION: CT bra
--- NOTE | 2023-05-31 17:09 | PC.NURSE ---
Patient refused flu vaccine at discharge.
== END 2023-05-31 17:31 | disposition home or self-care (01) ==
LOC: ANHED 11:35 → ANH2MED 18:22
PROVIDERS: Nurse Practitioner; Physician Assistant; Admitting Provider Internal Medicine; Emergency Provider Emergency Medicine; Visit Provider Hospitalist
DX: R42 Dizziness and giddiness (principal); E87.6 Hypokalemia; I10 Essential (primary) hypertension; R73.9 Hyperglycemia, unspecified; N39.0 Urinary tract infection, site not specified; B96.20 Unspecified Escherichia coli [E. coli] as the cause of diseases classified elsewhere; R63.0 Anorexia; M47.816 Spondylosis without myelopathy or radiculopathy, lumbar region; Z68.33 Body mass index [BMI] 33.0-33.9, adult; Z20.822 Contact with and (suspected) exposure to COVID-19; Z79.899 Other long term (current) drug therapy
CPT/HCPCS: 36415; 70450; 70496; 70498; 70553; 72100; 80048; 80053; 81001; 83735; 85025; 85027; 87077; 87086; 87186; 87493; 87637; 95992; 96361; 96365; 96374; 96375; 96376; 97110; 97116; 97161; 97530; 99285; A9270; A9577; G0378; J0330; J0696; J1170; J2405; J2765; J3360; J3480; J7030; J7040; J7120; Q9967